=== PATIENT | female | born 1995 | race Caucasian/White ===

== ENCOUNTER 2022-04-07 11:18 | Emergency (ER) | payer OTHER ==
[~2022-04-07] VITALS: Ht 170.2 cm; Wt 63.5 kg
[2022-04-07] MEDS ORDERED: LABETALOL HCL 5 MG/ML 20ML VIAL IV STA (11:36)
[2022-04-07 11:43] LABS: BASOPHILS % 0.3 % (0.0-1.0); EOSINOPHILS % 0.1 % (0.0-6.0); HEMATOCRIT 40.8 % (34.2-44.1); HEMOGLOBIN 13.3 g/dL (12.0-16.0); LYMPHOCYTES # (AUTO) 1.4 (1.0-3.2); LYMPHOCYTES % 14.2 % (18.0-39.1); MEAN CORPUSCULAR HEMOGLOBIN 26.5 pg (28-32); MEAN CORPUSCULAR HGB CONC 32.6 g/dL (31-35); MEAN CORPUSCULAR VOLUME 81.3 fL (81-99); MONOCYTES # (AUTO) 0.6 (0.2-0.8); MONOCYTES % 5.9 % (4.4-11.3); NEUTROPHILS # (AUTO) 7.7 (2.1-6.9); NEUTROPHILS % 79.2 % (38.7-80.0); PLATELET COUNT 277 x10e3/uL (140-360); RED BLOOD COUNT 5.02 x10e6/uL (3.6-5.1); RED CELL DISTRIBUTION WIDTH 12.9 % (11.7-14.4)
[2022-04-07] MEDS ORDERED: SODIUM CHLORIDE 0.9% 1000ML 1,000 ML IV ONE (11:45)
[2022-04-07] MEDS ORDERED: Morphine 4mg INJECTION 4 MG/ML INJ IV PRN (11:45)
[2022-04-07] MEDS ORDERED: ONDANSETRON HCL INJ 2MG/ML 2ML 2 MG/ML VIAL IV PRN (11:45)
[2022-04-07 12:14] LABS: LIPASE 23 U/L (8-78)
[2022-04-07 12:17] LABS: ALBUMIN/GLOBULIN RATIO 0.9 (0.8-2.0); ANION GAP 16.5 mmol/L (8-16); CALCIUM 8.7 mg/dL (8.4-10.2); CREATININE, SERUM 0.76 mg/dL (0.57-1.11); POTASSIUM 3.5 mmol/L (3.5-5.1)
[2022-04-07 12:51] LABS: FREE THYROXINE INDEX 2.4194 (1.4-3.8); THYROID STIMULATING HORMONE 2.734 uIU/mL (0.350-4.940)
[2022-04-07] MEDS ORDERED: IOPAMIDOL 370 MG/ML 100 ML INFUS..BTL INJ ONE (13:04)
== END 2022-04-07 15:16 | disposition home or self-care (01) ==
LOC: ER 11:25
DX: R07.81 Pleurodynia (principal); R03.0 Elevated blood-pressure reading, without diagnosis of hypertension; R00.0 Tachycardia, unspecified; R94.31 Abnormal electrocardiogram [ECG] [EKG]
CPT/HCPCS: 0223U; 36415; 71260; 80053; 83690; 84436; 84443; 84479; 84484; 84702; 85025; 93005; 99284; J2270; J2405; J3490; J7030; Q9967